=== PATIENT | male | born 1950 | race Hispanic/Latino ===

== ENCOUNTER 2017-09-23 06:36 | Day surgery (SDC) | payer OTHER ==
[~2017-09-23] VITALS: Ht 167.6 cm; Wt 90.7 kg
[~2017-09-23 06:36] MED LIST: CARB100C4 PO; PHEN60TA15 PO; SODIUM CHLORIDE 0.9% 1000ML 1,000 ML IV ONE
[2017-09-23 07:25] VITALS: BP 127/77
[2017-09-23] MEDS ORDERED: FENTANYL CITRATE PF 50 MCG/1 ML 2ML VIAL ONE (08:58)
[2017-09-23] MEDS ORDERED: PROPOFOL 10 MG/ML 20ML VIAL IV ONE ×2 (08:58)
[2017-09-23 09:31] VITALS: BP 85/46
== END 2017-09-23 10:10 | disposition home or self-care (01) ==
LOC: ENDO 06:36 → DAH 06:39 → ENDO 10:10
PROVIDERS: ATTEND Internal Medicine Gastroenterology
DX: Z09 Encounter for follow-up examination after completed treatment for conditions other than malignant neoplasm (principal); D12.4 Benign neoplasm of descending colon; D12.5 Benign neoplasm of sigmoid colon; D12.3 Benign neoplasm of transverse colon; G40.802 Other epilepsy, not intractable, without status epilepticus; M19.90 Unspecified osteoarthritis, unspecified site; Z98.890 Other specified postprocedural states; Z86.010 Personal history of colon polyps; Z79.899 Other long term (current) drug therapy
CPT/HCPCS: 45380; 88305; A4606; J2704 ×2; J3010; J7030

== ENCOUNTER → 2021-07-24 | Outpatient (CLI) | payer OTHER ==
[~2021-07-24] MED LIST changes: -CARB100C4 PO; +CARB100C9 PO; -SODIUM CHLORIDE 0.9% 1000ML 1,000 ML IV ONE
== END | disposition home or self-care (01) ==
LOC: RAH 16:12
PROVIDERS: ATTEND Clinical Nurse Specialist Family Health
DX: G57.02 Lesion of sciatic nerve, left lower limb (principal); M47.26 Other spondylosis with radiculopathy, lumbar region; M48.07 Spinal stenosis, lumbosacral region; Z96.643 Presence of artificial hip joint, bilateral
CPT/HCPCS: 72100; 72200

== ENCOUNTER → 2021-10-08 | Outpatient (CLI) | payer OTHER | LOC: RAH 10:10 | PROVIDERS: ATTEND Internal Medicine | DX: Z01.818 Encounter for other preprocedural examination (principal); M17.11 Unilateral primary osteoarthritis, right knee | CPT/HCPCS: 71046 ==

== ENCOUNTER 2021-10-30 06:21 | Observation (INO) | payer OTHER ==
[2021-10-28 10:45] VITALS: BP 140/75
[2021-10-28 10:53] LABS: BASOPHILS % (AUTO) 0.2 % (0.0-5.0); EOSINOPHILS % (AUTO) 0.6 % (0.0-8.0); HEMATOCRIT 39.6 % (42-54); LYMPHOCYTES % (AUTO) 31.2 % (21.0-51.0); MEAN CORPUSCULAR HGB CONC 36.1 g/dL (32.0-36.0); MEAN CORPUSCULAR VOLUME 94.3 fL (79-99); MONOCYTES % (AUTO) 9.7 % (3.0-13.0); NEUTROPHILS % (AUTO) 57.7 % (40.0-77.0); PLATELET COUNT (AUTO) 242 K/uL (130-400); WHITE BLOOD COUNT (AUTO) 4.6 K/uL (4.8-10.8)
[2021-10-28 11:00] LABS: CREATININE 0.7 mg/dL (0.5-1.5); POTASSIUM 4.5 mmol/L (3.5-5.1)
[2021-10-28 11:06] LABS: INR 0.93 (0.85-1.15); PROTHROMBIN TIME 10.2 SEC (9.6-11.6)
[~2021-10-30] VITALS: Ht 167.6 cm; Wt 92.9 kg
[2021-10-30] VITALS (26 sets, daily range): BP systolic 136–183; BP diastolic 72–99
[2021-10-30] MEDS: CEFAZOLIN SODIUM 2 GM VIAL IV SCH (05:00)
[~2021-10-30 06:21] MED LIST changes: +LISI2.5T13 PO
[2021-10-30] MEDS ORDERED: LACTATED RINGERS 1000ML 0 ML IV ONE (06:31)
[2021-10-30] MEDS ORDERED: CEFAZOLIN SODIUM 1 GM VIAL ONE ×2 (06:31→08:14)
[2021-10-30] MEDS ORDERED: 0.9%NACL 1000ML 1,000 ML IV ONE (06:55)
[2021-10-30 07:21] LABS: CREATININE 0.8 mg/dL (0.5-1.5); POTASSIUM 4.2 mmol/L (3.5-5.1)
[2021-10-30] MEDS ORDERED: SUCCINYLCHOLINE 200MG/10ML SYR ONE (07:22)
[2021-10-30] MEDS ORDERED: SUCCINYLCHOLINE CHLORIDE 20 MG/ML 10 ML VIAL ONE ×2 (07:22→08:42)
[2021-10-30] MEDS ORDERED: LIDOCAINE PF 100MG/5ML (2%) SYRINGE 5ML ONE ×2 (07:22→08:42)
[2021-10-30] MEDS ORDERED: GLYCOPYRROLATE 1 MG/5 ML SYRINGE ONE ×2 (07:23→08:42)
[2021-10-30] MEDS ORDERED: DEXAMETHASONE SOD PHOSPHATE 10MG/ML 1ML VIAL ONE (07:23)
[2021-10-30] MEDS ORDERED: MIDAZOLAM HCL 1 MG/ML 2ML VIAL ONE ×2 (07:23→08:42)
[2021-10-30] MEDS ORDERED: NEOSTIGMINE 5MG/5ML SYR IV ONE ×2 (07:23→08:42)
[2021-10-30] MEDS ORDERED: ONDANSETRON 4MG INJ ONE ×2 (07:23→08:42)
[2021-10-30] MEDS ORDERED: PROPOFOL 10 MG/ML 20ML VIAL IV ONE ×2 (07:23→08:42)
[2021-10-30] MEDS ORDERED: FENTANYL CITRATE PF 50 MCG/1 ML 2ML VIAL ONE ×3 (07:24→10:23)
[2021-10-30] MEDS ORDERED: ROCURONIUM 10MG/1ML SYR 10 MG/ML ML ONE ×2 (07:24→08:43)
[2021-10-30] MEDS ORDERED: ROPIVACAINE 0.5% 5MG/ML 30ML IJ ONE (08:06)
[2021-10-30] MEDS ORDERED: TRANEXAMIC ACID 1000MG/10ML ONE ×2 (08:14→11:47)
[2021-10-30] MEDS ORDERED: CEFAZOLIN SODIUM 2 GM VIAL IV ONE (09:00)
[2021-10-30] MEDS ORDERED: TRANEXAMIC ACID 1000MG/10ML IV ONE (09:00)
[2021-10-30] MEDS ORDERED: CEFAZOLIN SODIUM 1 GM VIAL IRRIG ONE (09:35)
[2021-10-30] MEDS ORDERED: KCL 20 MEQ ERTAB PO PRN (11:30)
[2021-10-30] MEDS ORDERED: FERROUS FUMARATE 324 MG TABLET PO PRN (11:30)
[2021-10-30] MEDS ORDERED: OXYCODONE HCL 5 MG TAB PO PRN (11:30)
[2021-10-30] MEDS ORDERED: CALCIUM CARB 500MG PO PRN (11:30)
[2021-10-30] MEDS ORDERED: LIDOCAINE HCL-MPF 1% 2ML VIAL IV PRN (11:30)
[2021-10-30] MEDS ORDERED: POTASSIUM CHLORIDE 10% ELIXIR 20 MEQ/15 ML UDCUP PO PRN (11:30)
[2021-10-30] MEDS ORDERED: DiphenhydrAMINE HCL 50 MG/ML VIAL IVP PRN (11:30)
[2021-10-30] MEDS ORDERED: POTASSIUM CHLORIDE 20MEQ/100ML 100 ML IV PRN (11:30)
[2021-10-30] MEDS: INSULIN HUMULIN R 100 UNIT/ML 3ML SQ SCH ×3 (11:30→20:23)
[2021-10-30] MEDS ORDERED: TRAMADOL HCL 50 MG TABLET PO PRN (11:30)
[2021-10-30] MEDS: ACETAMINOPHEN 500 MG TABLET PO SCH ×2 (11:30→18:39)
[2021-10-30] MEDS ORDERED: ONDANSETRON 4MG INJ IVP PRN (11:30)
[2021-10-30] MEDS ORDERED: LABETALOL 20MG VIAL IV ONE (12:13)
[2021-10-30] MEDS ORDERED: MEPERIDINE-PF 25 MG/ML SYG ONE ×2 (12:20→12:34)
[2021-10-30] MEDS: 0.9%NACL 1000ML 1,000 ML IV SCH ×2 (13:15→21:30)
[2021-10-30] MEDS: KETOROLAC 15MG/ML VIAL (15MG/ML) IV PRN ×2 (13:27→23:20)
[2021-10-30] MEDS: OXYCODONE HCL 5 MG TAB PO PRN ×2 (14:31→20:19)
[2021-10-30] MEDS: LISINOPRIL 2.5 MG TABLET PO SCH (15:10)
[2021-10-30] MEDS: CEFAZOLIN SODIUM 1 GM VIAL IVP SCH ×2 (16:05→23:31)
[2021-10-30] MEDS: ASPIRIN 81 MG EC TAB PO SCH (20:19)
[2021-10-30] MEDS: CELECOXIB 200 MG CAP PO SCH (20:19)
[2021-10-30] MEDS: CARBAMAZEPINE 200 MG TABLET PO SCH (20:19)
[2021-10-30] MEDS: TAMSULOSIN HCL 0.4 MG CAP.ER.24H PO SCH (20:19)
[2021-10-30] MEDS: FAMOTIDINE 20MG TAB PO SCH (20:19)
[2021-10-30] MEDS: PHENOBARBITAL 1/4 GR TABLET PO SCH (20:22)
[2021-10-31] VITALS (7 sets, daily range): BP systolic 133–158; BP diastolic 70–89
[2021-10-31] MEDS: 0.9%NACL 1000ML 1,000 ML IV SCH (01:14)
[2021-10-31] MEDS: CEFAZOLIN SODIUM 2 GM VIAL IV SCH ×2 (01:14→19:23)
[2021-10-31] MEDS: ACETAMINOPHEN 500 MG TABLET PO SCH ×3 (03:40→18:49)
[2021-10-31 04:12] LABS: HEMATOCRIT 35.8 % (42-54); MEAN CORPUSCULAR HEMOGLOBIN 33.2 pg (27.0-33.0); MEAN CORPUSCULAR HGB CONC 34.6 g/dL (32.0-36.0); RED BLOOD CELL COUNT(AUTO) 3.73 MIL/uL (4.50-6.20); RED CELL DISTRIBUTION WIDTH 12.1 % (11.0-15.5)
[2021-10-31 04:19] LABS: CREATININE 0.9 mg/dL (0.5-1.5); POTASSIUM 3.9 mmol/L (3.5-5.1)
[2021-10-31] MEDS: INSULIN HUMULIN R 100 UNIT/ML 3ML SQ SCH ×4 (06:16→21:00)
[2021-10-31] MEDS: PHENOBARBITAL 1/4 GR TABLET PO SCH ×2 (09:00→19:35)
[2021-10-31] MEDS ORDERED: LISINOPRIL 2.5 MG TABLET PO SCH (09:00)
[2021-10-31] MEDS: KETOROLAC 15MG/ML VIAL (15MG/ML) IV PRN (09:24)
[2021-10-31] MEDS: FAMOTIDINE 20MG TAB PO SCH ×2 (09:28→19:34)
[2021-10-31] MEDS: CELECOXIB 200 MG CAP PO SCH ×2 (09:28→19:34)
[2021-10-31] MEDS: POLYETHYLENE GLYCOL 3350 17 GM POWD.PACK PO SCH (09:28)
[2021-10-31] MEDS: CARBAMAZEPINE 200 MG TABLET PO SCH ×2 (09:28→19:34)
[2021-10-31] MEDS: LISINOPRIL 2.5 MG TABLET PO SCH (09:28)
[2021-10-31] MEDS: ASPIRIN 81 MG EC TAB PO SCH ×2 (09:28→19:34)
[2021-10-31] MEDS: TAMSULOSIN HCL 0.4 MG CAP.ER.24H PO SCH (19:32)
[2021-10-31] MEDS: OXYCODONE HCL 5 MG TAB PO PRN (21:20)
[2021-11-01] MEDS: ACETAMINOPHEN 500 MG TABLET PO SCH ×2 (03:58→11:05)
[2021-11-01 04:12] VITALS: BP 169/86
[2021-11-01] MEDS: INSULIN HUMULIN R 100 UNIT/ML 3ML SQ SCH ×3 (05:26→15:47)
[2021-11-01 08:00] VITALS: BP 142/77
[2021-11-01] MEDS: PHENOBARBITAL 1/4 GR TABLET PO SCH (09:00)
[2021-11-01] MEDS: ASPIRIN 81 MG EC TAB PO SCH (09:09)
[2021-11-01] MEDS: POLYETHYLENE GLYCOL 3350 17 GM POWD.PACK PO SCH (09:09)
[2021-11-01] MEDS: CARBAMAZEPINE 200 MG TABLET PO SCH (09:09)
[2021-11-01] MEDS: FAMOTIDINE 20MG TAB PO SCH (09:09)
[2021-11-01] MEDS: LISINOPRIL 2.5 MG TABLET PO SCH (09:09)
[2021-11-01] MEDS: CELECOXIB 200 MG CAP PO SCH (09:09)
[2021-11-01 12:00] VITALS: BP 146/75
[2021-11-01 16:00] VITALS: BP 165/81
[2021-11-01] MEDS ORDERED: HYDR-4060 PO (16:52)
[2021-11-01] MEDS ORDERED: AEC81 PO (16:52)
[2021-11-02] MEDS ORDERED: BISACODYL 10 MG SUPP.RECT RC PRN (11:30)
== END 2021-11-01 19:20 ==
LOC: DAH 06:21 → DAHIP 06:22 → DAH 06:22 → 4AH 13:18
PROVIDERS: ADMIT Orthopaedic Surgery; ATTEND Orthopaedic Surgery
DX: M17.11 Unilateral primary osteoarthritis, right knee (principal); Z20.822 Contact with and (suspected) exposure to COVID-19; D62 Acute posthemorrhagic anemia; I10 Essential (primary) hypertension; M10.9 Gout, unspecified; Z96.642 Presence of left artificial hip joint; Z79.899 Other long term (current) drug therapy
CPT/HCPCS: 27447; 36415 ×3; 80048 ×3; 82948 ×11; 85025; 85027; 85610; 87088; 87635; 87641; 96372 ×2; 96374; 96375; 96376 ×2; 97039 ×4; 97116 ×4; 97161; 97530 ×3; A4215; A4221; A4222; A4223; A4600; A4649 ×5; A4663; A9272; C1776; C9803; G0378 ×52; J0330 ×3; J0690 ×6; J1100; J1815 ×2; J1885 ×3; J2001 ×2; J2175 ×2; J2250 ×2; J2405 ×2; J2704 ×2; J2710 ×2; J3010 ×3; J3490 ×6; J7030; J7120; J2795

== ENCOUNTER → 2023-04-21 | Outpatient (CLI) | payer OTHER ==
[~2023-04-21] MED LIST changes: +AEC81 PO; +HYDR-4060 PO
== END | disposition home or self-care (01) ==
LOC: RAH 10:25
PROVIDERS: ATTEND Internal Medicine
DX: M19.012 Primary osteoarthritis, left shoulder (principal); M25.512 Pain in left shoulder
CPT/HCPCS: 73030

== ENCOUNTER → 2024-06-28 | Outpatient (CLI) | payer OTHER ==
--- NOTE | 2024-06-28 15:23 | HMCIMG ---
HAND 3+VWS RT REASON: RIGHT HAND/WRIST PAIN TECHNIQUE: 3 views were obtained. FINDINGS: There is marked osteoarthritis in the first metacarpophalangeal joint. There is moderate to marked osteoarthritis in the DIP joints. There are no fractures. There is no soft tissue foreign body. IMPRESSION: No acute findings.
--- NOTE | 2024-06-28 15:29 | HMCIMG ---
WRIST COMP 3+VWS RT REASON: RIGHT HAND/WRIST PAIN TECHNIQUE: 3 views were obtained. FINDINGS: There is mild radiocarpal joint space narrowing. Intercarpal joint spaces appear preserved. There is marked narrowing of the first metacarpophalangeal joint with moderate narrowing of the second and third MCP joints. There are no fractures. Soft tissues appear unremarkable. IMPRESSION: 1. Osteoarthritis as described.
== END | disposition home or self-care (01) ==
LOC: RAH 10:39
PROVIDERS: ATTEND Nurse Practitioner Family
DX: M19.031 Primary osteoarthritis, right wrist (principal); M19.041 Primary osteoarthritis, right hand; M25.531 Pain in right wrist
CPT/HCPCS: 73110; 73130